=== PATIENT | male | born 1955 | race Caucasian/White ===

== ENCOUNTER 2020-01-13 15:01 | Observation (INO) ==
[2020-01-13] MEDS ORDERED: Nitroglycerin 0.4 MG TAB.SUBL SL PRN (15:17)
[2020-01-13] MEDS: Aspirin 81 MG TAB.CHEW PO SCH (15:25)
[2020-01-13 15:32] LABS: Basophils % 0.5 %; Eosinophils # 0.2 K/mcL (0.0-0.6); Eosinophils % 3.2 %; Hematocrit 42.6 % (37.5-50.1); Immature Granulocytes % 0.2 % (0-4); Lymphocytes # 2.2 K/mcL (0.6-4.6); Lymphocytes % 34.8 %; Mean Corpuscular HGB Conc 32.9 g/dL (31.6-35.5); Mean Corpuscular Hemoglobin 30.4 pg (28.0-33.3); Mean Corpuscular Volume 92.4 fL (83.0-100.0); Monocytes # 0.6 K/mcL (0.0-1.3); Monocytes % 10.2 %; Neutrophils # 3.2 K/mcL (1.6-8.9); Platelet Count 215 K/mcL (140-400); Red Blood Count 4.61 M/mcL (4.19-5.50); Red Cell Distribution Width 12.5 % (11.5-14.5); Segmented Neutrophils % 51.1 %; White Blood Count 6.2 K/mcL (4.3-11.1)
[2020-01-13 15:41] LABS: INR 1.9; Prothrombin Time 21.3 Seconds (9.4-12.1)
[2020-01-13 15:43] LABS: Activated Partial Thrombo Time 32.8 Seconds (26.0-36.0)
[2020-01-13 15:56] LABS: Alanine Aminotransferase 18 Units/L (7-52); Albumin 4.3 g/dL (3.5-5.7); Albumin/Globulin Ratio 1.6 (1.1-2.2); Alkaline Phosphatase 49 Units/L (34-104); Aspartate Amino Transferase 19 Units/L (13-39); BUN/Creatinine Ratio 22 (6-26); Bilirubin,Direct 0.2 mg/dL (0.0-0.2); Bilirubin,Indirect 0.6 mg/dL (0.0-1.0); Bilirubin,Total 0.8 mg/dL (0.3-1.0); Blood Urea Nitrogen 20 mg/dL (8-23); Calcium 9.5 mg/dL (8.6-10.3); Carbon Dioxide 25 mEq/L (23-29); Chloride 105 mEq/L (98-107); Globulin 2.7 g/dL (2.4-3.5); Glucose 120 mg/dL (70-105); Osmolality,Calculated 290 (280-300); Potassium 3.9 mEq/L (3.5-5.1); Sodium 138 mEq/L (136-145); Troponin I < 0.03 ng/mL (< 0.04); eGFR For African Americans > 60 (> 60); eGFR For Non-African Americans > 60 (> 60)
[2020-01-13] MEDS ORDERED: Isovue-370 500 ML BOTTLE IVP ONE (16:52)
[2020-01-13] MEDS ORDERED: *HR* Dextrose 50 % in Water (Vial) 50 ML VIAL IVP PRN (20:30)
[2020-01-13] MEDS ORDERED: D5% in Water 1,000 ML IVC PRN (20:30)
[2020-01-13] MEDS ORDERED: Dextrose Gel 15 GM/37.5 ML TUBE PO PRN ×2 (20:30)
[2020-01-13] MEDS ORDERED: Ondansetron 4 MG/2 ML VIAL IVP PRN (20:34)
[2020-01-13] MEDS ORDERED: Naloxone 0.4 MG/ML INJ IVP PRN (20:34)
[2020-01-13] MEDS ORDERED: Acetaminophen 325 MG TABLET PO PRN (20:34)
[2020-01-13] MEDS ORDERED: Apixaban 5 MG TABLET PO ONE (20:42)
[2020-01-14] MEDS: Insulin LISPRO 300 UNITS/3 ML VIAL SQ SCH ×3 (00:45→12:00)
[2020-01-14 04:50] LABS: Hematocrit 39.1 % (37.5-50.1); Mean Corpuscular HGB Conc 33.2 g/dL (31.6-35.5); Mean Corpuscular Volume 93.3 fL (83.0-100.0); Mean Platelet Volume 10.1 fL (9.4-12.4); Platelet Count 169 K/mcL (140-400); Red Blood Count 4.19 M/mcL (4.19-5.50); Red Cell Distribution Width 12.7 % (11.5-14.5)
[2020-01-14 05:07] LABS: BUN/Creatinine Ratio 20 (6-26); Blood Urea Nitrogen 18 mg/dL (8-23); Calcium 8.9 mg/dL (8.6-10.3); Carbon Dioxide 26 mEq/L (23-29); Chloride 106 mEq/L (98-107); Chol/HDL Ratio 3.9 (0-4.9); Cholesterol 94 mg/dL (< 200); Glucose 91 mg/dL (70-105); HDL Cholesterol 24 mg/dL (40-59); LDL Cholesterol,Calculated 51 mg/dL (< 100); Magnesium 1.7 mg/dL (1.6-2.6); Osmolality,Calculated 289 (280-300); Phosphorous 3.9 mg/dL (2.7-4.5); Potassium 3.5 mEq/L (3.5-5.1); Sodium 139 mEq/L (136-145); Triglycerides 97 mg/dL (< 150); eGFR For African Americans > 60 (> 60); eGFR For Non-African Americans > 60 (> 60)
[2020-01-14] MEDS ORDERED: Regadenoson 0.4 MG/5 ML SYRINGE IVP ONE (06:32)
[2020-01-14] MEDS ORDERED: lisinopriL 20 MG TABLET PO SCH (09:00)
[2020-01-14] MEDS ORDERED: allopurinoL 100 MG TABLET PO SCH (09:00)
[2020-01-14] MEDS: Aspirin 81 MG TAB.CHEW PO SCH (09:18)
[2020-01-14] MEDS ORDERED: lisinopriL 10 MG TABLET PO ONE (12:44)
[2020-01-14] MEDS ORDERED: lisinopriL 20 MG TABLET PO ONE (14:40)
[2020-01-14 16:18] VITALS: BP 118/84
[2020-01-14] MEDS ORDERED: carvediloL 6.25 MG TABLET PO SCH (21:00)
== END 2020-01-14 17:32 | disposition home or self-care (01) ==
LOC: 3BNU 15:01 → EMEROOARM 15:01 → 3BNU 20:22
PROVIDERS: ADMIT Family Medicine; ATTEND Family Medicine